=== PATIENT | male | born 1955 | race African-American/Black ===

== ENCOUNTER 2017-06-10 18:16 | Emergency (ER) | payer BC, OTHER ==
--- NOTE | 2017-06-10 18:57 | ER Document Report ---
ED Medical Screen (RME) - General Chief Complaint: Abdominal Problem Stated Complaint: LOWER ABDOMINAL PAIN Time Seen by Provider: 06/10/17 18:51 Notes: This 61-year-old male patient moved here in October 2016. Previously he was living in [place]. He developed ventral hernias sometime last year. He states he [facility] This did not happen. He states it is been hurting for 4 months, that it "it got real hard a minute ago". "It swells up and goes back down". When asked what prompted him to come the emergency room today, he stated that "my sister made me come in". I have greeted and performed a rapid initial assessment of this patient. A comprehensive ED assessment and evaluation of the patient, analysis of test results and completion of the medical decision making process will be conducted by additional ED providers. - Related Data Allergies/Adverse Reactions: No Known Allergies Allergy (Verified 06/10/17 18:51) Past Medical History - Social History Chew tobacco use (# tins/day): No Frequency of alcohol use: Occasional Drug Abuse: Cocaine Renal/ Medical History: Denies: Hx Peritoneal Dialysis Physical Exam - Vital signs Vitals: Temp Pulse Resp BP Pulse Ox 98.7 F 97 22 H 156/93 H 95 06/10/17 18:23 06/10/17 18:23 06/10/17 18:23 06/10/17 18:23 06/10/17 18:23 Course - Vital Signs Vital signs: Temp Pulse Resp BP Pulse Ox 98.7 F 97 22 H 156/93 H 95 06/10/17 18:23 06/10/17 18:23 06/10/17 18:23 06/10/17 18:23 06/10/17 18:23
--- NOTE | 2017-06-10 21:23 | ER Document Report ---
ED General - General Chief Complaint: Abdominal Problem Stated Complaint: LOWER ABDOMINAL PAIN Time Seen by Provider: 06/10/17 18:51 Notes: Patient is a 61-year-old male with medical history as recorded who presents with 5-6 months of pain in a central ventral hernia. Patient states that he was scheduled to have a surgery but then he moved down here to [place] and has not followed up with a surgeon since moving here. He reports that he intermittently has an associated cramping, throbbing, aching pain to the ventral hernia worsened when he is standing. He states that this typically improves if he lies flat and pushes on the hernia. He denies any associated vomiting, difficulty tolerating oral intake, and notes that he continues to have bowel movements and pass flatus without difficulty. Nothing is new or different about the hernia with associated pain today that prompted a visit to the emergency department. He states he came to the ER because his "family made me". - Related Data Allergies/Adverse Reactions: No Known Allergies Allergy (Verified 06/10/17 18:51) Past Medical History - General Information source: Patient - Social History Smoking Status: Never Smoker Chew tobacco use (# tins/day): No Frequency of alcohol use: Occasional Drug Abuse: Cocaine Lives with: Family Family History: Reviewed & Not Pertinent Patient has suicidal ideation: No Patient has homicidal ideation: No - Past Medical History Cardiac Medical History: Reports: Hx Hypertension Renal/ Medical History: Denies: Hx Peritoneal Dialysis Past Surgical History: Reports: Hx Abdominal Surgery Review of Systems - Review of Systems Notes: Constitutional: Negative for fever. HENT: Negative for sore throat. Eyes: Negative for visual changes. Cardiovascular: Negative for chest pain. Respiratory: Negative for shortness of breath. Gastrointestinal: Positive for intermittent abdominal pain Genitourinary: Negative for dysuria. Musculoskeletal: Negative for back pain. Skin: Negative for rash. Neurological: Negative for headaches, weakness or numbness. 10 point ROS negative except as marked above and in HPI. Physical Exam - Vital signs Vitals: Temp Pulse Resp BP Pulse Ox 98.7 F 97 22 H 156/93 H 95 06/10/17 18:23 06/10/17 18:23 06/10/17 18:23 06/10/17 18:23 06/10/17 18:23 Interpretation: Hypertensive Notes: PHYSICAL EXAMINATION: GENERAL: Well-appearing, well-nourished and in no acute distress. HEAD: Atraumatic, normocephalic. EYES: Pupils equal round and reactive to light, extraocular movements intact, sclera anicteric, conjunctiva are normal. ENT: nares patent, oropharynx clear without exudates. Moist mucous membranes. NECK: Normal range of motion, supple without lymphadenopathy LUNGS: Breath sounds clear to auscultation bilaterally and equal. No wheezes rales or rhonchi. HEART: Regular rate and rhythm without murmurs ABDOMEN: Soft, large central ventral abdominal hernia that is easily reduced and the patient lies flat and gentle pressure was applied, the hernia is soft and easily compressible. No focal abdominal tenderness. Normoactive bowel sounds. No guarding, no rebound. No masses appreciated. EXTREMITIES: Normal range of motion, no pitting or edema. No cyanosis. NEUROLOGICAL: No focal neurological deficits. Moves all extremities spontaneously and on command. PSYCH: Normal mood, normal affect. SKIN: Warm, Dry, normal turgor, no rashes or lesions noted. Course - Re-evaluation Re-evalutation: 06/10/17 21:18 Patient presents with a large central ventral hernia that is not incarcerated. It is soft, easily reduced at the bedside with direct palpation. No firmness, erythema or induration to the area. Patient reports that is unchanged over the past 5 months and he came today at the behest of his family. No indication for imaging or labs. I do not clinically suspect incarcerated hernia, small bowel obstruction, or any clinically significant acute pathology at this time based on exam and history. Patient will be placed on abdominal binder for comfort and I have instructed him to follow-up with the surgeon as an outpatient as he likely requires elective repair of the area. At this time will discharge with return precautions and follow-up recommendations. Verbal discharge instructions given a the bedside and opportunity for questions given. Medication warnings reviewed. Patient is in agreement with this plan and has verbalized understanding of return precautions and the need for primary care follow-up in the next 24-72 hours. - Vital Signs Vital signs: Temp Pulse Resp BP Pulse Ox 98.3 F 84 18 148/96 H 99 06/10/17 21:28 06/10/17 21:28 06/10/17 21:28 06/10/17 21:28 06/10/17 21:28 Discharge - Discharge Clinical Impression: Ventral hernia without obstruction or gangrene Condition: Good Disposition: HOME, SELF-CARE Additional Instructions: Please return if you develop worsening abdominal pain, vomiting, stop having bowel movements, develop a fever, or have any other symptoms that are concerning to you. Please follow-up with a surgeon as an outpatient as you likely require repair of this hernia. You may wear the abdominal binder that he was sent home with for comfort as needed. Referrals: CLAUDIA ALMANZA MD [ACTIVE STAFF] - Follow up as needed
[2017-06-10 21:53] VITALS: BP 148/96
== END 2017-06-10 21:56 | disposition home or self-care (01) ==
LOC: ER 18:16
DX: K43.9 Ventral hernia without obstruction or gangrene (principal); R10.30 Lower abdominal pain, unspecified; I10 Essential (primary) hypertension
CPT/HCPCS: 99284

== ENCOUNTER → 2017-09-08 | Outpatient (CLI) | payer OTHER ==
--- NOTE | 2017-09-08 10:56 | RADIOLOGY REPORT (SQ) ---
EXAM DESCRIPTION: CT ABD/PELVIS WITH IV ORAL COMPLETED DATE/TIME: 09/08/2017 10:24 am REASON FOR STUDY: UNSPEC ABD HERNIA W/O OBSTRUCTION OR GANGRENE (K46.9) K46.9 UNSPECIFIED ABDOMINAL HERNIA WITHOUT OBSTRUCTION OR GA COMPARISON: None. TECHNIQUE: CT scan of the abdomen and pelvis performed using helical scanning technique with dynamic intravenous contrast injection. Oral contrast. Images reviewed with lung, soft tissue, and bone win dows. Reconstructed coronal and sagittal MPR images reviewed. Delayed images for evaluation of the ur inary system also acquired. All images stored on PACS. All CT scanners at this facility use dose modulation, iterative reconstruction, and/or weight based d osing when appropriate to reduce radiation dose to as low as reasonably achievable (ALARA). [facility]: Dose Right [facility]: CareDose [facility]: Dose Right [facility]: Teradose 4D [facility]: Virtual 3-D Display for Smartphones CONTRAST TYPE AND DOSE: 37.85 100 mL Omnipaque 350- low osmolar. RENAL FUNCTION: Creatinine 1 RADIATION DOSE: CT Rad equipment meets quality standard of care and radiation dose reduction techniq ues were employed. CTDIvol: 17.7 - 20.2 mGy. DLP: 1965 mGy-cm.. LIMITATIONS: None. FINDINGS: LOWER CHEST: No significant findings. No nodules or infiltrates. LIVER: Normal size. No masses. No dilated ducts. SPLEEN: Normal size. No focal lesions. PANCREAS: No masses. No significant calcifications. No adjacent inflammation or peripancreatic fluid collections. Pancreatic duct not dilated. GALLBLADDER: Gallstones. No inflammatory changes to suggest cholecystitis. ADRENAL GLANDS: No significant masses or asymmetry. RIGHT KIDNEY AND URETER: No solid masses. No significant calcifications. No hydronephrosis or hyd roureter. LEFT KIDNEY AND URETER: No solid masses. No significant calcifications. No hydronephrosis or hydr oureter. AORTA AND VESSELS: No aneurysm. No dissection. Renal arteries, SMA, celiac without stenosis. RETROPERITONEUM: No retroperitoneal adenopathy, hemorrhage or masses. BOWEL AND PERITONEAL CAVITY: No masses or inflammatory changes. No free fluid or peritoneal masses. APPENDIX: Normal. PELVIS: No mass. No free fluid. Normal bladder. ABDOMINAL WALL: 6 cm wide ventral hernia containing mostly omental fat and a short unobstructed segme nt of transverse colon. BONES: No significant or acute findings. OTHER: No other significant finding. IMPRESSION: 1. Cholelithiasis with no evidence of cholecystitis. 2. Ventral hernia containing omental fat and a short unobstructed segment of transverse colon. TECHNICAL DOCUMENTATION: JOB ID: [id number] Quality ID # [id number]: Final reports with documentation of one or more dose reduction techniques (e.g., Au tomated exposure control, adjustment of the mA and/or kV according to patient size, use of iterative reconstruction technique) 2010 [employer]- All Rights Reserved Reading location - IP/workstation name: [email or web address]
== END ==
LOC: RAD 09:23
PROVIDERS: ATTEND Surgery
DX: K46.9 Unspecified abdominal hernia without obstruction or gangrene (principal); K80.20 Calculus of gallbladder without cholecystitis without obstruction; K43.9 Ventral hernia without obstruction or gangrene
CPT/HCPCS: 74177; 82565